=== PATIENT | female | born 1990 | race Hispanic/Latino ===

== ENCOUNTER 2024-12-15 14:42 | Outpatient (CLI) | payer MEDICAID, SELFPAY ==
[2024-12-15 16:20] LABS: Hematocrit 37.1 % (37.0-47.0); Hemoglobin 11.6 g/dL (12.0-15.0); Mean Corpuscular HGB Conc 31.3 g/dl (32-36); Mean Corpuscular Volume 86.3 fl (80-100); Mean Platelet Volume 10.8 fl (7.4-10.4); Platelet Count Result 279 k/mm3 (150-375); Red Cell Distribution Width 14.6 % (11.5-14.5); White Blood Count 11.9 K/mm3 (4.5-10.0)
[2024-12-15 16:32] LABS: Glucose 1 Hour PP 50gm Dose 170 mg/dL
[2024-12-15 16:57] LABS: Syphilis IgG/IgM Antibody Negative (Negative)
[2024-12-15 17:01] LABS: Hepatitis B Surface Antigen Negative (Negative)
[2024-12-15 17:11] LABS: HIV 1/2 Ab P24 Ag Result Negative (Negative)
[2024-12-15 17:53] LABS: Rubella IgG Antibody > 110.0 IU/ML
== END 2024-12-15 14:43 | disposition home or self-care (01) ==
PROVIDERS: Visit Provider Student in an Organized Health Care Education/Training Program
DX: Z34.90 Encounter for supervision of normal pregnancy, unspecified, unspecified trimester (principal); Z3A.00 Weeks of gestation of pregnancy not specified
CPT/HCPCS: 36415; 82947; 84702; 85027; 86593; 86644; 86703; 86747; 86762; 86850; 86900; 86901; 87086; 87340; G0432

== ENCOUNTER 2025-03-09 10:30 | Outpatient (CLI) | payer BC, SELFPAY ==
--- NOTE | ~2025-03-09 | US_ITS ---
EXAM EXAMINATION: US OB follow up DATE: 03/10/2025 10:30 CDT INDICATION: Growth and position COMPARISON: None TECHNIQUE: Real-time transabdominal obstetric ultrasound. FINDINGS: 3 para 2 There is a single intrauterine gestation in vertex presentation. The placenta is anterior cardiac activity and movement is noted with a heart rate of 151 beats per minute. The following biometric data was obtained: Biparietal diameter (BPD): 8.6 cm; head circumference (HC): 31.4 cm; abdominal circumference (AC): 30.3 cm; femur length (FL): 6.7 cm. These measurements are concordant. Estimated weight is 2426 g +/- 364 g, which correlates with the 40th percentile when 04/15/2025 i s used as estimated date of delivery. Amniotic fluid index measures 5 cm (within the lower limits of normal) and is subjectively low, as de scribed by the registered vascular technologist (rvt). As single measurements, these parameters are each equal to the following estimated gestational ages: BPD: 34 weeks 6 days. HC: 35 weeks 2 days. AC: 34 weeks 2 days. FL: 34 weeks 2 days. estimated gestational age based solely on measurements from this exam is 34 weeks 5 days +/- 2 weeks 3 days. IMPRESSION: Single intrauterine gestation in vertex presentation with cardiac activity identified. The amniotic fluid index measures 5 cm. Vertex presentation. Estimated weight correlates with the 40th percentile when 04/15/2025 is used as estimated date of delivery. Reviewed, dictated and finalized at location A. IMPRESSION: Single intrauterine gestation in vertex presentation with cardiac activit y identified. The amniotic fluid index measures 5 cm. Vertex presentation. Estimated weight correlates with the 40th percentile when 04/15/2025 is use d as estimated date of delivery.
== END 2025-03-09 10:31 | disposition home or self-care (01) ==
PROVIDERS: PCP Physician Assistant Medical; Visit Provider Student in an Organized Health Care Education/Training Program
DX: Z34.90 Encounter for supervision of normal pregnancy, unspecified, unspecified trimester (principal)
CPT/HCPCS: 76816

== ENCOUNTER 2025-04-04 16:14 | Inpatient (IN) | payer BC, SELFPAY ==
[2025-04-04] VITALS (8 sets, daily range): BP systolic 84–130; BP diastolic 56–85; PULSE 80–94; TEMP 36.8; BMI 29.8
[2025-04-04 17:05] LABS: Hematocrit 33.5 % (37.0-47.0); Hemoglobin 10.3 g/dL (12.0-15.0); Immature Granulocyte Percent A 0.5 % (0-0.5); Lymphocytes Absolute Auto 2.11 K/mm3 (0.9-3.2); Mean Corpuscular HGB Conc 30.7 g/dl (32-36); Mean Corpuscular Hemoglobin 23.4 pg (26-34); Mean Corpuscular Volume 76.1 fl (80-100); Nucleated Red Blood Cells Absolute Auto 0.000 K/mm3 (0.0-0.012); Nucleated Red Blood Cells Perc 0.0 % (0.0-0.2); Platelet Count Result 278 k/mm3 (150-375); Red Blood Count 4.40 M/mm3 (4.2-5.4); White Blood Count 12.2 K/mm3 (4.5-10.0)
--- NOTE | 2025-04-04 17:46 | LDADM ---
This patient, Violet Bush, was admitted to Labor/Delivery/Recovery 107 on 04/04/25 at 16:14. Plans for labor, pain management and were discussed with patient. Patient/family oriented to hospital policies and general routines including ID bracelet, bed and alarms, visiting hours, pain management, procedures, bathroom and other care routines, personal items, smoking policy, room service/diet and guest tray routines, security routines, and visiting hours. Patient/Family are encouraged to report perceived risks to care and to ask questions if they do not understand what they are told or what they should do. See OBIX for further documentation.
[2025-04-04 17:52] LABS: Syphilis IgG/IgM Antibody Non-Reactive (Nonreactive)
[2025-04-04] MEDS: DINOPROSTONE 10 MG VAG INSERT VAGINAL (18:30)
[2025-04-04 19:44] LABS: Alanine Aminotransferase 18 U/L (6-35); Albumin Level 3.9 g/dL (3.5-5.1); Alkaline Phosphatase 209 U/L (38-126); Anion Gap 9 mmol/L (4-12); Aspartate Amino Transferase 36 U/L (14-36); Bilirubin,Total 0.3 mg/dL (0.2-1.3); Blood Urea Nitrogen 10 mg/dL (7-17); Calcium 9.5 mg/dL (8.4-10.2); Carbon Dioxide 20 mmol/L (22-30); Chloride 105 mmol/L (98-107); Estimated CRCL calculation 106 ml/min; Estimated Glomerular Filt Rate > 60; Glucose 87 mg/dL (65-110); Potassium 4.0 mmol/L (3.4-5.0); Sodium 134 mmol/L (137-145); Total Protein 7.9 g/dL (6.3-8.2)
[2025-04-04 20:22] LABS: HIV 1/2 Ab P24 Ag Result Negative (Negative)
[2025-04-05] VITALS (59 sets, daily range): BP systolic 73–155; BP diastolic 23–131; PULSE 65–143; RESP 16–18; TEMP 36.1–36.4; O2SAT 95–98
[2025-04-05] MEDS: LACTATED RINGERS 1,000 ML 125 ML IV CONT ×2 (02:52→12:38)
[2025-04-05] MEDS: AMPICILLIN SODIUM 2 GM in SODIUM CHLORIDE 0.9% IV 100 ML 200 ML IVPB (02:54)
[2025-04-05] MEDS: AMPICILLIN SODIUM 1 GM in SODIUM CHLORIDE 0.9% IV 50 ML 100 ML IVPB ×3 (06:45→14:55)
--- NOTE | 2025-04-05 15:29 | P.HP_ITS ---
H&P: HPI History of Present Illness Date/Time: 04/05/25 15:29 Chief Complaint: Intrauterine at term advanced maternal age Narrative: 35 yo who presents for IOL at 40w6d. is complicated by late transfer of care at 25 w, citizen [place] speaking, and advanced maternal age. Patient failed her 1 hour GCT which was administered late in her . She was non- compliant with 3 hr GTT. Review of Systems Cardiovascular: Cardiovascular: Denies chest pain, Denies leg edema, Denies palpitations, Denies dyspnea and Denies dyspnea on exertion Respiratory: Respiratory: Denies cough, Denies dyspnea and Denies dyspnea on exertion Gastrointestinal: Gastrointestinal: Denies abdominal pain, Denies constipation, Denies diarrhea, Denies nausea and Denies vomiting Genitourinary: Genitourinary: Denies hematuria, Denies urinary frequency, Denies dysuria, Denies pelvic pain, Denies urinary incontinence and Denies vaginal discharge Neurologic: Reports system reviewed and no additional complaints, except as documented Psychiatric: Psychiatric: Reports no additional psychiatric complaints Endocrine: Endocrine: Denies palpitations [facility] Family History Family History (Updated 04/04/25 @ 17:58 by Elis Hsieh RN) Other Diabetes mellitus Social History Social History Smoking status: Former smoker Alcohol intake: former Substance use: never Substance use type: does not use Lack of Transportation: YES Lack of Food: Never True Current Housing: I Have Housing Concerned About Future Housing: No Difficulty Paying Gas/Electric Bills: YES Difficulty Paying for Meds: No Currently Unemployed: YES Education: Grade School Difficulty w/ Childcare or Family Care: No Living arrangements: with family Gender identity (if verbalized by the patient): Female Sexual Orientation (if Verbalized by the Patient): Straight or Heterosexual Spiritual care concerns: No Meds Home Medications and Allergies Home Medications ?Medication ?Instructions ?Recorded ?Confirmed ?Type vits no.126-ferrous fum 1 tablet PO DAILY 02/0304/04/25 History 28 mg iron-folic acid 800 mcg tablet (Classic ) Allergies Allergy/AdvReac Type Severity Reaction Status Date / Time No Known Allergies Allergy Verified 04/01/25 09:12 Vital Signs Vital Signs - 24 hr 04/04/25 17:05 04/04/25 17:15 04/04/25 17:32 Temperature Pulse Rate 93 89 Blood Pressure 84/56 L 110/85 Oxygen Delivery Room Air 04/04/25 18:01 04/04/25 19:25 04/04/25 21:01 Temperature 98.3 F Pulse Rate 90 80 Blood Pressure 123/85 127/79 Oxygen Delivery 04/04/25 22:01 04/04/25 23:01 04/04/25 23:30 Temperature 98.3 F Pulse Rate 91 94 Blood Pressure 130/73 123/76 Oxygen Delivery 04/05/25 00:01 04/05/25 01:01 04/05/25 02:01 Temperature Pulse Rate 93 102 H 99 Blood Pressure 122/69 110/75 109/76 Oxygen Delivery 04/05/25 03:01 04/05/25 03:35 04/05/25 04:00 Temperature 97.6 F Pulse Rate 94 88 Blood Pressure 73/23 L 106/73 Oxygen Delivery 04/05/25 05:01 04/05/25 06:01 04/05/25 06:15 Temperature 97.1 F L Pulse Rate 79 79 Blood Pressure 124/75 122/70 Oxygen Delivery 04/05/25 07:01 04/05/25 07:31 04/05/25 07:35 Temperature Pulse Rate 85 110 H 82 Blood Pressure 84/62 L 89/51 L 114/73 Oxygen Delivery 04/05/25 07:46 04/05/25 08:01 04/05/25 08:16 Temperature Pulse Rate 125 H 89 105 H Blood Pressure 96/74 L 120/79 105/91 H Oxygen Delivery 04/05/25 08:31 04/05/25 08:47 04/05/25 08:57 Temperature Pulse Rate 83 92 89 Blood Pressure 118/71 153/131 H 123/74 Oxygen Delivery 04/05/25 09:16 04/05/25 09:31 04/05/25 09:46 Temperature Pulse Rate 93 85 103 H Blood Pressure 118/74 113/63 108/71 Oxygen Delivery 04/05/25 10:01 04/05/25 10:16 04/05/25 10:46 Temperature Pulse Rate 93 100 104 H Blood Pressure 106/77 109/59 L 114/72 Oxygen Delivery 04/05/25 11:01 04/05/25 11:16 04/05/25 11:31 Temperature Pulse Rate 102 H 96 89 Blood Pressure 122/77 115/84 119/83 Oxygen Delivery 04/05/25 12:01 04/05/25 12:16 04/05/25 12:30 Temperature 97.2 F L Pulse Rate 91 99 Blood Pressure 117/79 132/71 Oxygen Delivery 04/05/25 12:31 04/05/25 12:46 04/05/25 13:01 Temperature Pulse Rate 89 94 100 Blood Pressure 126/75 123/68 123/75 Oxygen Delivery 04/05/25 13:16 04/05/25 13:31 04/05/25 13:46 Temperature Pulse Rate 99 88 100 Blood Pressure 123/55 L 92/61 L 117/75 Oxygen Delivery 04/05/25 14:01 04/05/25 14:16 04/05/25 14:31 Temperature Pulse Rate 91 104 H 87 Blood Pressure 117/78 126/75 126/73 Oxygen Delivery 04/05/25 14:46 04/05/25 15:01 04/05/25 15:17 Temperature Pulse Rate 79 82 82 Blood Pressure 110/59 L 121/75 125/76 Oxygen Delivery Exam Const: General: no acute distress Eyes: EOM: EOMs intact bilaterally Neck: Neck: supple Thyroid: thyroid normal Chest: Breast/axilla inspection: normal inspection of the breasts Breast/axilla palpation: normal palpation of the breasts, normal palpation of the axillae and no axillary lymphadenopathy Resp: Effort & Inspection: normal respiratory effort Auscultation: clear to auscultation bilaterally Cardio: Rate: regular rate Rhythm: regular rhythm GI: Inspection: non-distended and other (Gravid) GI Palp: Yes Soft to palpation, No Tenderness to palpation present (GI) and No Guarding due to palpa tion present (GI) Auscultation: normal bowel sounds : Speculum Exam - Vagina: No vaginal bleeding OB/external & speculum: external exam normal; No vaginal bleeding Skin: General skin exam: normal color and no rashes or lesions noted Neuro: Cognition (Neuro): normal cognition Speech: normal speech Extrem: General: normal to inspection Psych: Mental Status: mental status grossly normal Affect: normal affect H&P: Results Labs Labs: Short CBC 04/04/25 Range/Units 16:58 WBC 12.2 H (4.5-10.0) K/mm3 Hgb 10.3 L (12.0-15.0) g/dL Hct 33.5 L (37.0-47.0) % Plt Count 278 (150-375) k/mm3 BMP 04/04/25 19:25 Sodium 134 L Potassium 4.0 Chloride 105 Carbon Dioxide 20 L BUN 10 Creatinine 0.63 L Glucose 87 Calcium 9.5 Liver Function 04/04/25 Range/Units 19:25 Total Bilirubin 0.3 (0.2-1.3) mg/dL AST 36 (14-36) U/L ALT 18 (6-35) U/L Alkaline Phosphatase 209 H (38-126) U/L Albumin 3.9 (3.5-5.1) g/dL Assessment and Plan Assessment and plan (1) IUP (intrauterine ), incidental: Code(s): Z33.1 - state, incidental Status: Acute Assessment and Plan: 35-year-old 40 weeks 6 days Patient was a late transfer of care at 25 weeks Patient failed her 1 hour GCT, did not complete 3 hour GTT Rh positive GBS unknown, will treat in labor Will plan for Cervidil induction of labor Continuous external monitoring Epidural as needed (2) Advanced maternal age (AMA) in : Status: Acute (3) [place] speaking patient: Status: Acute
[2025-04-05] MEDS: OXYTOCIN 30 UNITS/NS 500 ML 30 UNITS/500 ML BAG IV CONT (17:36)
--- NOTE | 2025-04-05 18:20 | PM.OBPRVD ---
OB - Vaginal Delivery Note Procedure Delivery date: 04/05/25 Events: Elective Induction of Labor Induction method: Per Cervidil Protocol Delivery monitor: External FHT and External Uterine Route of delivery: Episiotomy description: None Laceration Description: None Specimen: No Quantitative Blood Loss (ml): 150 Anesthesia type: None Disposition: Floor Complications: No immediate complications Narrative: Patient pushed for a spontaneous vaginal delivery. The fetus was delivered atraumatically and placed on the maternal abdomen. The cord was clamped and cut after 1 minute of life. The cord was double clamped and cut and a segment of cord was collected for cord gases. Cord blood was collected for blood type and Coomb's testing. The placenta delivered spontaneously and was noted to be intact. The perineum was inspected and noted to be intact. The fundus was noted to be firm and good hemostasis was noted. The mom and infant were stable in the delivery room. [place] Baby Date of : 04/05/25 Time of : 18:13 Gestational Age by Date: 40 Infant gender: Female presentation: vertex position: Right Occiput Anterior Placenta delivery description: Spontaneous Cord Vessel Description: 3 Vessels score one minute: 9 score five minutes: 9
[2025-04-05] MEDS: ACETAMINOPHEN 500 MG TABLET 1000 MG PO (19:00)
[2025-04-05] MEDS: OXYTOCIN 30 UNITS/NS 500 ML 30 UNITS/500 ML BAG 125 UNITS IV CONT (19:00)
--- NOTE | 2025-04-05 20:55 | OBPPTRN ---
Patient transferred to post room #285 via wheelchair. Support person present. Oriented to unit, room, information board, rooming in, admission packet and security measures. Patient verbalizes understanding.
[2025-04-05] MEDS: WITCH HAZEL 40 PADS 1 PAD TOPICAL (21:17)
[2025-04-05] MEDS: BENZOCAINE 20% AER SPR (*SP) 56 GM CAN 1 SPRAY TOPICAL (21:17)
[2025-04-06 05:07] LABS: Hematocrit 29.7 % (37.0-47.0); Hemoglobin 8.9 g/dL (12.0-15.0)
--- NOTE | 2025-04-06 07:56 | PM.OBDSVD ---
DS: Admitting Diagnosis Discharge Date 04/06/25 Admitting Diagnosis intrauterine at term advanced maternal age OB - DS: Summary OB Procedures : None OB Procedures Intrapartum: Spontaneous Vag Delivery OB Procedures: : None Peripartum Data Laceration Description: None Episiotomy description: None Time Spent with Patient Time attestation: Total time spent providing and/or coordinating discharge services: DS: Data Data Completed and Pending Labs on day of discharge: Labs from last 24 hours 04/06/25 04/05/25 04/05/25 04:29 16:10 14:18 Hgb 8.9 L Hct 29.7 L POC Capillary Glucose 75 81 04/05/25 09:54 Hgb Hct POC Capillary Glucose 117 H Discharge Plan Discharge Discharging Clinician: Sukumar Burch Patient Disposition: Home Activity: as tolerated and pelvic rest Diet: regular Patient Instructions: Antibiotic Form Patient Language: Welsh Stand Alone Forms: General Discharge Information Follow-up/Referrals: Sukumar Burch MD [Physician, AND [employer]] Discharge Medications: New acetaminophen 500 mg tablet 500 mg PO Q6H PRN (Reason: pain) Qty: 30 0RF ferrous sulfate 325 mg (65 mg iron) tablet 325 mg PO DAILY Qty: 60 0RF ibuprofen 600 mg tablet 600 mg PO Q6H PRN (Reason: pain) Qty: 30 0RF Continued Classic 28 mg iron- 800 mcg tablet 1 tablet PO DAILY Date of admission: 04/04/25 16:14 Primary Care Provider: SuzannaAmanuel Admitting Provider: Sukumar Burch Attending physician on admission: Sukumar Burch Condition: Stable
[2025-04-06 08:10] VITALS: BP 99/58; PULSE 80; RESP 16; TEMP 37; O2SAT 99
[2025-04-06] MEDS: MULTIVIT/MIN/PREN/FOL AC/IRON TABLET 1 TAB PO (09:00)
[2025-04-06] MEDS: IBUPROFEN 600 MG TABLET PO ×3 (09:00→23:12)
[2025-04-06] MEDS: DOCUSATE SODIUM 100 MG CAPSULE PO ×2 (09:00→16:25)
[2025-04-06] MEDS: ACETAMINOPHEN 325 MG TABLET 650 MG PO ×2 (11:32→20:41)
[2025-04-06 12:38] VITALS: BP 105/62; PULSE 76; RESP 18; TEMP 36.6; O2SAT 98
--- NOTE | 2025-04-06 16:10 | PC.NURSE ---
Patient speaks [place] and her primary RN is able to converse with her in Iraqi. Primary RN saw a good latch and patient is comfortable with . She was provided with a [place] handout on the first two weeks of . She would like to be discharged today and a feeding plan will be added to baby's discharge plan.
[2025-04-06 20:30] VITALS: PULSE 100; RESP 16; O2SAT 68
[2025-04-06 20:36] VITALS: BP 118/75; PULSE 100; RESP 16; TEMP 36.7; O2SAT 68
[2025-04-07] MEDS: ACETAMINOPHEN 325 MG TABLET 650 MG PO ×2 (04:36→14:14)
[2025-04-07 07:50] VITALS: BP 106/57; PULSE 76; RESP 16; TEMP 37; O2SAT 100
[2025-04-07 10:00] VITALS: PULSE 76; RESP 16; O2SAT 100
[2025-04-07] MEDS: MULTIVIT/MIN/PREN/FOL AC/IRON TABLET 1 TAB PO (10:00)
[2025-04-07] MEDS: DOCUSATE SODIUM 100 MG CAPSULE PO (10:00)
--- NOTE | 2025-04-07 13:28 | PC.NURSE ---
Mother verbalizes she is able to independently latch with appropriate positioning and alignment. She denies any nipple discomfort and is responsively . Infant is currently meeting outcomes for weight, output, jaundice, blood sugar and feeding frequencies of 8-12 times in 24 hours. Mother declines any additional assistance or education at this time. Mother is encouraged to call for assistance if her infant doesn?t latch, pain with latching, questions or concerns. Mother voiced understanding of information shared along with the mom/baby guide and was also given the Telugu Book for additional resources. Reported to the Primary RN.
[2025-04-07] MEDS: IBUPROFEN 600 MG TABLET PO (14:14)
[2025-04-09 11:36] VITALS: BP 140/79; PULSE 97; RESP 18; TEMP 36.9; O2SAT 100
== END 2025-04-07 16:04 | disposition home or self-care (01) | DRG 560 ==
LOC: ANHLDR 16:48 → ANHOB2 04-05 20:57
PROVIDERS: Admitting Provider Student in an Organized Health Care Education/Training Program; PCP Physician Assistant Medical; Visit Provider Student in an Organized Health Care Education/Training Program
DX: O24.429 Gestational diabetes mellitus in childbirth, unspecified control (principal); Z37.0 Single live birth; Z3A.40 40 weeks gestation of pregnancy; O62.3 Precipitate labor
CPT/HCPCS: 36415; 80053; 82948; 85014; 85018; 85025; 86593; 86703; 86850; 86900; 86901; A9270; G0432; J0290; J2590; J7120